=== PATIENT | male | born 1975 | race African-American/Black ===

== ENCOUNTER 2017-01-06 15:35 | Emergency (ER) | payer MEDICAID ==
[~2017-01-06] VITALS: Ht 185.4 cm; Wt 84.2 kg
[2017-01-06 15:36] VITALS: BP 142/93
[2017-01-06] MEDS ORDERED: HYDROcodone/APAP 5/325 TABLET PO STA (16:11)
[2017-01-06] MEDS ORDERED: HYDROcodone/APAP 5/325 TABLET ONE (16:12)
[2017-01-06 16:20] LABS: HEMOGLOBIN 14.7 g/dL (13.7-18.0)
[2017-01-06 16:31] LABS: BLOOD UREA NITROGEN 7 mg/dL (7-18)
== END 2017-01-06 16:55 | disposition home or self-care (01) ==
LOC: ED 16:30
DX: M25.461 Effusion, right knee (principal); M25.561 Pain in right knee; G89.29 Other chronic pain
CPT/HCPCS: 29505; 36415; 80048; 82040; 85025